=== PATIENT | male | born 1950 | race Caucasian/White ===

== ENCOUNTER 2016-07-23 04:48 | Emergency (ER) | payer OTHER ==
[~2016-07-23] VITALS: Ht 165.1 cm; Wt 63.5 kg
[2016-07-23] MEDS ORDERED: DIPHTH,PERTUSS(ACELL),TET TOX 0.5 ML DISP.SYRIN. VAX IM ONE (05:45)
[2016-07-23] MEDS ORDERED: LIDOCAINE 1%/EPI 1:100,000 20 ML VIAL. INJ ONE (05:45)
--- NOTE | 2016-07-23 05:45 | PHYS DOC ---
Past Medical History Past Medical History: Anxiety, Diabetes-Type II, High Cholesterol, Hypertension Additional Past Medical Histor: horseshoe kidney Past Surgical History: Other Additional Past Surgical Histo: septum Alcohol Use: Heavy Drug Use: None Adult General Chief Complaint Chief Complaint: ALCOHOL INTOXICATION HPI HPI Patient is a 65 year old gentleman with history significant for hypertension and diabetes who arrives to the ED today via [facility] from [address] [place] [address]. Patient reports that this is a [place] home. Patient reports he lives alone. Patient was found wandering around on foot with a laceration to his left eyebrow. Patient reports that he had fallen earlier. Patient reports no loss of consciousness. Patient reports that he was drinking a lot tonight and thinks that that's why he fell. Patient denies any chest pain shortness of breath nausea vomiting or diarrhea. Patient currently complaining of pain to his left eyebrow. Patient denies any neck pain back pain or other extremity pain. Patient reports he is able and blade after the fall without any difficulty. Patient denies any other symptomatology. Patient denies any fevers shakes chills nausea vomiting diarrhea chest pain shortness of breath cough cold rhinorrhea. Patient has a dysuria frequency or urgency. Review of Systems Review of Systems Constitutional: Denies fever or chills [] Eyes: Denies change in visual acuity, redness, or eye pain [] HENT: 2 cm laceration to his left eyebrow. Respiratory: Denies cough or shortness of breath [] Cardiovascular: No additional information not addressed in HPI [] GI: Denies abdominal pain, nausea, vomiting, bloody stools or diarrhea [] : Denies dysuria or hematuria [] Musculoskeletal: Denies back pain or joint pain [] Integument: Denies rash or skin lesions [] Neurologic: Denies headache, focal weakness or sensory changes [] Endocrine: Denies polyuria or polydipsia [] Current Medications Current Medications Current Medications Medications (Trade) Dose Ordered Sig/Liseth Start Time Stop Time Status Last Admin Dose Admin Diphtheria/ Tetanus/Acell Pertussis (Boostrix) 0.5 ml ONCE ONCE 07/23/16 05:45 07/23/16 05:46 DC 07/23/16 06:43 0.5 ML Lidocaine/ Epinephrine (Xylocaine 1%-Epi 1:100,000) 20 ml 1X ONCE 07/23/16 05:45 5/8/17 05:46 DC 07/23/16 05:45 20 ML Allergies Allergies Allergies Coded Allergies Type Severity Reaction Last Updated Verified codeine Allergy Unknown 07/23/16 Yes Physical Exam Physical Exam Constitutional: Well developed, well nourished, no acute distress, non-toxic appearance. [] HENT: Normocephalic, atraumatic, bilateral external ears normal, oropharynx moist, no oral exudates, nose normal. [] Eyes: PERRLA, EOMI, conjunctiva normal, no discharge. 2 cm laceration to his left eyebrow. [] Neck: Normal range of motion, no tenderness, supple, no stridor. [] Cardiovascular:Heart rate regular rhythm, Lungs & Thorax: Bilateral breath sounds clear to auscultation [] Abdomen: Bowel sounds normal, soft, no tenderness, no masses, no pulsatile masses. [] Skin: Warm, dry, no erythema, no rash. [] Back: No tenderness, no CVA tenderness. [] Extremities: No tenderness, no cyanosis, no clubbing, ROM intact, no edema. [] Neurologic: Alert and oriented X 3, normal motor function, normal sensory function, no focal deficits noted. [] Psychologic: Affect normal, judgement normal, mood normal. [] Current Patient Data Vital Signs Vital Signs Date Time Temp Pulse Resp B/P (MAP) Pulse Ox O2 Delivery O2 Flow Rate FiO2 07/23/16 07:35 70 16 145/77 (99) 98 Room Air 07/23/16 04:55 97.6 97.6 EKG EKG [] Radiology/Procedures Radiology/Procedures [] Procedure note: Patient with laceration to his left eyebrow. Wound was irrigated with 500 mL of normal saline. Wound was cleansed with Betadine and alcohol prep. After anesthetization with 2 mL of lidocaine. Wound was sutured utilizing 3 times 4. 0 Ethilon sutures. Simple interrupted. Patient tolerated the procedure well. Course & Med Decision Making Course & Med Decision Making Pertinent Labs and Imaging studies reviewed. (See chart for details) Assumed care of this patient from Dr. Cast. Patient remained in stable condition. He ambulated to the restroom with steady gait. A&Ox3, not suicidal. Will discharge in stable & improved condition, follow up for suture removal, consider treatment for alcohol addiction/abuse. Lillian Rivera MD [] Dragon Disclaimer Dragon Disclaimer This electronic medical record was generated, in whole or in part, using a voice recognition dictation system. Departure Departure Impression: Primary Impression: Alcohol intoxication Additional Impressions: Eyebrow laceration Fall Disposition: 01 HOME, SELF-CARE Condition: IMPROVED Referrals: UNKNOWN PCP NAME (PCP) Patient Instructions: Alcohol Intoxication, Facial Laceration, Head Injury, Adult Additional Instructions: He will need a wound check in 2 days. Sutures may be removed in 5-7 days. Do not drink so much alcohol. Go home and sleep do not drive. Drink lots of nonalcoholic liquids. Problem Qualifiers Primary Impression: Alcohol intoxication Complication of substance-induced condition: uncomplicated Qualified Codes: F10.120 - Alcohol abuse with intoxication, uncomplicated Additional Impressions: Eyebrow laceration Encounter type: initial encounter Laterality: left Qualified Codes: S01.112A - Laceration without foreign body of left eyelid and periocular area, initial encounter Fall Encounter type: initial encounter Qualified Codes: W19.XXXA - Unspecified fall, initial encounter GIOVANNY CAST MD July 23, 2016 05:45 LILLIAN RIVERA MD July 23, 2016 07:33
--- NOTE | 2016-07-23 06:16 | RAD ---
PROCEDURE CT head and cervical spine without contrast. HISTORY Trauma, fall, head injury. COMPARISON CT head without contrast October 04, 2005. TECHNIQUE Helical CT imaging of the brain and of the cervical spine is performed without IV contrast. PQRS: One or more the following individualized dose reduction techniques were utilized for the study: 1. Automated exposure control. 2. Adjustment of the mA and/or kV according to patient size. 3. Use of iterative reconstruction technique. FINDINGS No acute calvarial fracture. Visualized globes and orbits are intact. Paranasal sinuses and mastoid air cells are clear. Mild lateral left frontal scalp soft tissue swelling. No midline shift or mass effect. No extra-axial fluid collection or intraparenchymal hemorrhage. Nixon-white matter differentiation is preserved. Basilar cisterns are patent. The ventricles and sulci are prominent, consistent with age-related cerebral atrophy. Ventricles are out of proportion to the sulci, this may reflect central atrophy. There is periventricular white matter hypoattenuation, nonspecific but commonly due to chronic small vessel ischemic disease in a patient of this age. No acute fracture or subluxation of the cervical spine. Minimal grade 1 anterolisthesis of C2 on C3. Alignment is otherwise maintained. There is degenerative endplate spurring in the cervical spine. The facet joints are intact, mildly hyper trophic. Calcifications along the nuchal ligament. Central canal stenosis of C4/C5 secondary to spondylitic disc. There is bilateral neural foraminal narrowing of C5/C6 that appears severe due to uncinate process hypertrophy. Visualized lung apices are clear. The thyroid gland is enlarged and heterogeneous. IMPRESSION No acute intracranial abnormality. No acute fracture or subluxation of the cervical spine. Electronically signed by: Dilip Ortiz MD (July 23, 2016 06:14:59)
[2016-07-23 07:35] VITALS: BP 145/77
== END 2016-07-23 08:15 | disposition home or self-care (01) ==
LOC: ER 04:48
DX: S01.112A Laceration without foreign body of left eyelid and periocular area, initial encounter (principal); F10.120 Alcohol abuse with intoxication, uncomplicated; F41.9 Anxiety disorder, unspecified; E11.9 Type 2 diabetes mellitus without complications; E78.00 Pure hypercholesterolemia, unspecified; I10 Essential (primary) hypertension; Z88.5 Allergy status to narcotic agent; W18.39XA Other fall on same level, initial encounter; Y93.89 Activity, other specified; Y92.89 Other specified places as the place of occurrence of the external cause; Y99.8 Other external cause status
CPT/HCPCS: 12011; 70450; 72125; 90471; 90715; 99284; J3490

== ENCOUNTER 2016-08-03 09:57 | Emergency (ER) | payer OTHER ==
[~2016-08-03] VITALS: Ht 170.2 cm; Wt 63.5 kg
[2016-08-03 10:10] VITALS: BP 152/67
--- NOTE | 2016-08-03 10:38 | PHYS DOC ---
Past Medical History Past Medical History: Other Additional Past Medical Histor: HARD OF HEARING Past Surgical History: No Surgical History Additional Past Surgical Histo: septum Additional Information: 1 PACK/DAY Alcohol Use: Occasionally Drug Use: None Adult General Chief Complaint Chief Complaint: SUTURE/STAPLE REMOVAL [facility] Patient is a 65 year old male presents to the emergency department stating that he was seen here on July 23 and had 3 interrupted sutures placed above his left eyebrow. Patient states that he has not been cleaning the area he denies any drainage or discharge coming from the site. He denies any fever, chills or any nausea vomiting. Review of Systems Review of Systems Constitutional: Denies fever or chills [] Eyes: Denies change in visual acuity, redness, or eye pain [] HENT: Denies nasal congestion or sore throat [] Respiratory: Denies cough or shortness of breath [] Cardiovascular: No additional information not addressed in HPI [] GI: Denies abdominal pain, nausea, vomiting, bloody stools or diarrhea [] : Denies dysuria or hematuria [] Musculoskeletal: Denies back pain or joint pain [] Integument: Denies rash or skin lesions. Patient states he is here for suture removal Neurologic: Denies headache, focal weakness or sensory changes [] Endocrine: Denies polyuria or polydipsia [] Allergies Allergies Allergies Coded Allergies Type Severity Reaction Last Updated Verified codeine Allergy Unknown 07/23/16 Yes Physical Exam Physical Exam Constitutional: Well developed, well nourished, no acute distress, non-toxic appearance. [] HENT: Normocephalic, atraumatic, bilateral external ears normal, oropharynx moist, no oral exudates, nose normal. [] Eyes: PERRLA, EOMI, conjunctiva normal, no discharge. [] Neck: Normal range of motion, no tenderness, supple, no stridor. [] Cardiovascular:Heart rate regular rhythm, no murmur [] Lungs & Thorax: Bilateral breath sounds clear to auscultation [] Skin: Warm, dry, no erythema, no rash. Patient with 3 interrupted sutures noted in the left forehead above the eyebrow. The area appears to be very crusted over no drainage or discharge noted from the site. Back: No tenderness Extremities: No tenderness, no cyanosis, no clubbing, ROM intact, no edema. [] Neurologic: Alert and oriented X 3, normal motor function, normal sensory function, no focal deficits noted. [] Psychologic: Affect normal, judgement normal, mood normal. [] Current Patient Data Vital Signs Vital Signs Date Time Temp Pulse Resp B/P (MAP) Pulse Ox O2 Delivery O2 Flow Rate FiO2 08/03/16 10:10 97.6 51 16 99 Room Air 97.6 EKG EKG [] Radiology/Procedures Radiology/Procedures [] Course & Med Decision Making Course & Med Decision Making Pertinent Labs and Imaging studies reviewed. (See chart for details) 3 interrupted sutures removed with no difficulty. Patient was provided with discharge instructions to keep the area clean and dry. Apply antibiotic ointment over the area 2-3 times a day. Patient agrees with discharge instructions. Signs symptoms to return back to emergency department been provided. [] Dragon Disclaimer Dragon Disclaimer This electronic medical record was generated, in whole or in part, using a voice recognition dictation system. Departure Departure Impression: Primary Impression: Visit for suture removal Disposition: HOME, SELF-CARE Condition: STABLE Referrals: UNKNOWN PCP NAME (PCP) Patient Instructions: Suture Removal-Brief Additional Instructions: Activity as tolerated Tylenol or Ibuprofen as needed for fever, chills or generalized body aches Clean the wound with soap and water and apply antibiotic ointment over the site twice a day Continue to watch for signs and symptoms of infection: redness, warmth, tenderness or any yellow/greenish drainage that may occur. If this happens followup with your primary care provider immediately Otherwise followup as needed with primary care provider Return to emergency department as needed for signs and symptoms that become worse. AKIN MORTENSEN [employer]INE [employer] August 03, 2016 10:38
== END 2016-08-03 10:46 | disposition home or self-care (01) ==
LOC: ER 10:26
DX: S01.112D Laceration without foreign body of left eyelid and periocular area, subsequent encounter (principal); F17.200 Nicotine dependence, unspecified, uncomplicated; Z88.5 Allergy status to narcotic agent; W45.8XXD Other foreign body or object entering through skin, subsequent encounter; Y92.89 Other specified places as the place of occurrence of the external cause; Y99.8 Other external cause status
CPT/HCPCS: 99281

== ENCOUNTER 2017-07-17 01:25 | Emergency (ER) | payer MEDICARE, OTHER ==
[2017-07-17] MEDS: DIPHTH,PERTUSS(ACELL),TET TOX 0.5 ML DISP.SYRIN. VAX IM (02:00)
== END 2017-07-17 02:22 | disposition home or self-care (01) ==
LOC: ER 01:25
DX: S00.81XA Abrasion of other part of head, initial encounter (principal); F10.229 Alcohol dependence with intoxication, unspecified; E11.9 Type 2 diabetes mellitus without complications; Z88.5 Allergy status to narcotic agent; W01.0XXA Fall on same level from slipping, tripping and stumbling without subsequent striking against object, initial encounter; Y93.89 Activity, other specified; Y99.8 Other external cause status; Y92.838 Other recreation area as the place of occurrence of the external cause
CPT/HCPCS: 90471; 90715; 99284-25

== ENCOUNTER 2018-06-07 23:55 | Emergency (ER) | payer MEDICARE ==
[~2018-06-07] VITALS: Ht 182.9 cm; Wt 63.5 kg
[2018-06-07 23:55] VITALS: BP 116/69
--- NOTE | 2018-06-08 04:44 | PHYS DOC ---
Past Medical History Past Medical History: Alcoholism, Diabetes-Type II, Other Additional Past Medical Histor: HARD OF HEARING Past Surgical History: No Surgical History Additional Past Surgical Histo: septum Alcohol Use: Heavy Drug Use: None Social History Narrative: UNKNOWN Adult General Chief Complaint Chief Complaint: ALCOHOL INTOXICATION HPI HPI Patient is a 67 year old m biba from [facility] with etoh drank too much reji wanted him to go home, he called 911 . no trauma. pt said he fell a couple weeks back, has scab on face from that. Review of Systems Review of Systems lijm by alcohol abuse and intoxication Allergies Allergies Allergies Coded Allergies Type Severity Reaction Last Updated Verified codeine Allergy Unknown 07/23/16 Yes Physical Exam Physical Exam Constitutional: Well developed, thin, mild chronic distress, smells like alcohol. HENT: Normocephalic, old appearing scabs on the face, bilateral external ears normal, oropharynx moist, no oral exudates, nose normal. [] Eyes: PERRLA,, conjunctiva normal, no discharge. [] Neck: Normal range of motion, no tenderness, supple, no stridor. [] Cardiovascular:Heart rate regular rhythm, no murmur [] Lungs & Thorax: Bilateral breath sounds clear to auscultation [] no chest wall ttp Abdomen: Bowel sounds normal, soft, no tenderness, no masses, no pulsatile masses. Extremities: No tenderness, no cyanosis, no clubbing, ROM intact, no edema. [] Neurologic: Alert and oriented X 3, normal motor function, normal sensory function, no focal deficits noted. [] slurred speech c/w known etoh otherwise intact. Psychologic:difficult to assess, pt is intoxicated Current Patient Data Vital Signs Vital Signs Date Time Temp Pulse Resp B/P (MAP) Pulse Ox O2 Delivery O2 Flow Rate FiO2 06/08/18 03:00 68 96 Nasal Cannula 2.0 06/08/18 01:00 16 06/07/18 23:55 97.6 116/69 (85) 97.6 Lab Values Laboratory Tests Test 06/08/18 01:07 Glucose (Fingerstick) 116 mg/dL (70-99) H EKG EKG [] Radiology/Procedures Radiology/Procedures [] Course & Med Decision Making Course & Med Decision Making Pertinent Labs and Imaging studies reviewed. (See chart for details) []430 am pt is more clinically sober, able to take po and ambulate. he plans to call a taxi to take him home. he has been observed in the er for several hours. encouraged to limit alcohol intake. Milvia Disclaimer Milvia Disclaimer This electronic medical record was generated, in whole or in part, using a voice recognition dictation system. Departure Departure Impression: Primary Impression: Alcohol abuse Disposition: 01 HOME, SELF-CARE Condition: STABLE Patient Instructions: Alcohol Problems JENNIFER JONES MD Jun 08, 2018 04:44
== END 2018-06-08 04:40 | disposition home or self-care (01) ==
LOC: ER 23:55
DX: F10.129 Alcohol abuse with intoxication, unspecified (principal); Y90.9 Presence of alcohol in blood, level not specified; E11.9 Type 2 diabetes mellitus without complications; Z88.5 Allergy status to narcotic agent
CPT/HCPCS: 82962; 99284

== ENCOUNTER 2019-03-12 11:15 | Emergency (ER) | payer MEDICARE, OTHER ==
[~2019-03-12] VITALS: Ht 170.2 cm; Wt 63.5 kg
[2019-03-12 12:07] LABS: BILIRUBIN,URINE NEGATIVE (NEG); COLOR,URINE YELLOW; NITRITE,URINE NEGATIVE (NEG); PROTEIN,URINE NEGATIVE (NEG-TRACE); UROBILINOGEN,URINE 0.2 mg/dL (0.2 mg/dL)
[2019-03-12 12:09] LABS: BASO % 0 % (0-3); EOS # 0.1 x10^3/uL (0.0-0.7); EOS % 2 % (0-3); HEMATOCRIT 41.5 % (39.0-53.0); HEMOGLOBIN 14.1 g/dL (13.0-17.5); LYMPH # 1.3 x10^3/uL (1.0-4.8); LYMPH % 21 % (24-48); MEAN CORPUSCULAR HEMOGLOBIN 31 pg (25-35); MEAN CORPUSCULAR HGB CONC 34 g/dL (31-37); MEAN CORPUSCULAR VOLUME 91 fL (79-100); MONO # 0.3 x10^3/uL (0.0-1.1); MONO % 6 % (0-9); NEUT # 4.5 x10^3/uL (1.8-7.7); NEUT % 71 % (31-73); PLATELET COUNT 275 x10^3/uL (140-400); RED BLOOD COUNT 4.54 x10^6/uL (4.30-5.70); RED CELL DISTRIBUTION WIDTH 15.6 % (11.5-14.5); WHITE BLOOD COUNT 6.3 x10^3/uL (4.0-11.0)
[2019-03-12 12:14] LABS: CALCIUM 10.2 mg/dL (8.5-10.1); CREATININE 0.9 mg/dL (0.7-1.3); GFR 83.7; POTASSIUM 4.2 mmol/L (3.5-5.1)
[2019-03-12 12:14] LABS: CLARITY,URINE HAZY
[2019-03-12 12:16] LABS: BACTERIA,URINE FEW /HPF (0-FEW); BARBITURATES NEG (NEG); BENZODIAZEPINES NEG (NEG); CANNABINOIDS NEG (NEG); COCAINE NEG (NEG); METHADONE NEG (NEG); OPIATES NEG (NEG); PHENCYCLIDINE NEG (NEG); RBC,URINE OCC /HPF (0-2); SQUAMOUS EPITHELIAL CELL,UR FEW /LPF
--- NOTE | 2019-03-12 12:18 | RAD ---
EXAM: CHEST ONE VIEW. HISTORY: Weakness. COMPARISON: None available. FINDINGS: A frontal view of the chest is obtained. There are no confluent infiltrates. There is no pneumothorax or pleural effusion. The heart is not enlarged. A sclerotic focus in the right proximal humeral metaphysis measures 2.5 x 1.6 cm. IMPRESSION: 1. No confluent infiltrates. 2. A 2.5 cm sclerotic lesion within the right proximal humerus is most likely a benign chondroid lesion such as an enchondroma. Comparison with older studies could confirm long-term stability. Electronically signed by: Oli Vital MD (03/12/2019 12:15 PM) [facility]
[2019-03-12 12:19] LABS: AMPHETAMINE/METHAMPHETAMINE NEG (NEG)
[2019-03-12 12:26] LABS: ALBUMIN/GLOBULIN RATIO 1.2 (1.0-1.7); TOTAL BILIRUBIN 0.3 mg/dL (0.2-1.0); TOTAL PROTEIN 7.4 g/dL (6.4-8.2)
--- NOTE | 2019-03-12 12:27 | RAD ---
CT HEAD INDICATION: COMPARISON: None Available. Exposure: One or more of the following individualized dose reduction techniques were utilized for this examination: 1. Automated exposure control 2. Adjustment of the mA and/or kV according to patient size 3. Use of iterative reconstruction technique TECHNIQUE: 5 mm contiguous axial images were obtained from the skull base to the vertex in both bone and soft tissue algorithm. FINDINGS: No abnormal attenuation within the brain parenchyma. No evidence of acute intracranial hemorrhage. No extra-axial fluid collections. No mass effect or midline shift. Ventricular size is appropriate. Basal cisterns are patent. No fractures identified.Nixon-white differentiation is preserved.Globes and orbits are within normal limits. Paranasal sinuses and mastoid air cells are clear. IMPRESSION: No acute intracranial findings. Electronically signed by: Dominick Yuen MD (03/12/2019 12:25 PM) [id number]
[2019-03-12] MEDS: IV NORMAL SALINE 1000ML BAG 1,000 ML IV ONE (12:31)
[2019-03-12 12:32] LABS: CREATINE KINASE 24 U/L (39-308)
--- NOTE | 2019-03-12 12:41 | EKG ---
[facility] [address] [place] [address] Test Date: 2019-03-12 Test Time: 11:38:46 Pat Name: ROSALEE OLIVEROS Department: Room: Gender: M Clerk Of Court: : 1950 Requested By: TAISHA JON Order Number: [id number] Reading MD: Measurements Intervals [place] Rate: 51 P: CT: QRS: -11 QRSD: 76 T: 52 QT: 460 QTc: 426 Interpretive Statements IRREGULAR RHYTHM, NO P-WAVE FOUND LEFTWARD AXIS ST & T ABNORMALITY, CONSIDER HIGH LATERAL ISCHEMIA OR LEFT VENTRICULAR STRAIN INFERIOR ISCHEMIA OR LEFT VENTRICULAR STRAIN ABNORMAL ECG RI6.01 No previous ECG available for comparison
[2019-03-12 13:00] VITALS: BP 179/125
--- NOTE | 2019-03-12 13:41 | PHYS DOC ---
Past Medical History Past Medical History: Alcoholism, Diabetes-Type II, Hypertension, Other Additional Past Medical Histor: HARD OF HEARING Past Surgical History: No Surgical History Additional Past Surgical Histo: septum Alcohol Use: Heavy Drug Use: None Adult General Chief Complaint Chief Complaint: WEAKNESS/GENERALIZED HPI HPI Patient is a 68 year old patient with history of alcoholism, hypertension, diabetes type 2, who presents to the ED today complaining of generalized weakness for 2 weeks. Patient denies any chest pain or shortness of breath. He reports he stopped drinking 2 months ago. Review of Systems Review of Systems Constitutional: Reports generalized weakness. Denies fever or chills [] Eyes: Denies change in visual acuity, redness, or eye pain [] HENT: Denies nasal congestion or sore throat [] Respiratory: Denies cough or shortness of breath [] Cardiovascular: No additional information not addressed in HPI [] GI: Denies abdominal pain, nausea, vomiting, bloody stools or diarrhea [] : Denies dysuria or hematuria [] Musculoskeletal: Denies back pain or joint pain [] Integument: Denies rash or skin lesions [] Neurologic: Denies headache, focal weakness or sensory changes [] All other systems were reviewed and found to be within normal limits, except as documented in this note. Current Medications Current Medications Current Medications Medications (Trade) Dose Ordered Sig/Liseth Start Time Stop Time Status Last Admin Dose Admin Sodium Chloride 1,000 ml @ 1,000 mls/hr 1X ONCE 03/12/19 12:00 03/12/19 12:59 DC 03/12/19 12:31 1,000 MLS/HR Allergies Allergies Allergies Coded Allergies Type Severity Reaction Last Updated Verified codeine Allergy Unknown 07/23/16 Yes Physical Exam Physical Exam Constitutional: Well developed, well nourished, no acute distress, non-toxic appearance. [] HENT: Normocephalic, atraumatic, bilateral external ears normal, oropharynx moist, no oral exudates, nose normal. Very hard of hearing especially on the left. Eyes: PERRLA, EOMI, conjunctiva normal, no discharge. [] Neck: Normal range of motion, no tenderness, supple, no stridor. [] Cardiovascular:Heart rate regular rhythm, no murmur [] Lungs & Thorax: Bilateral breath sounds clear to auscultation [] Abdomen: Bowel sounds normal, soft, no tenderness, no masses, no pulsatile mas ses. [] Skin: Warm, dry, no erythema, no rash. [] Back: No tenderness, no CVA tenderness. [] Extremities: No tenderness, no cyanosis, no clubbing, ROM intact, no edema. [] Neurologic: Alert and oriented X 3, normal motor function, normal sensory function, no focal deficits noted. Cranial nerves II through XII intact Psychologic: Affect normal, judgement normal, mood normal. [] Current Patient Data Vital Signs Vital Signs Date Time Temp Pulse Resp B/P (MAP) Pulse Ox O2 Delivery O2 Flow Rate FiO2 03/12/19 13:00 74 18 99 03/12/19 11:30 98.2 160/75 (103) Room Air 98.2 Lab Values Laboratory Tests Test 03/12/19 11:28 03/12/19 11:42 Urine Collection Type Void Urine Color Yellow Urine Clarity Hazy Urine pH 8.0 Urine Specific [place] 1.010 Urine Protein Negative mg/dL (NEG-TRACE) Urine Glucose (UA) Negative mg/dL (NEG) Urine Ketones (Stick) Negative mg/dL (NEG) Urine Blood Negative (NEG) Urine Nitrite Negative (NEG) Urine Bilirubin Negative (NEG) Urine Urobilinogen Dipstick 0.2 mg/dL (0.2 mg/dL) Urine Leukocyte Esterase Negative (NEG) Urine RBC Occ /HPF (0-2) Urine WBC 1-4 /HPF (0-4) Urine Squamous Epithelial Cells Few /LPF Urine Bacteria Few /HPF (0-FEW) Urine Mucus Slight /LPF Urine Opiates Screen Neg (NEG) Urine Methadone Screen Neg (NEG) Urine Barbiturates Neg (NEG) Urine Phencyclidine Screen Neg (NEG) Urine Amphetamine/Methamphetamine Neg (NEG) Urine Benzodiazepines Screen Neg (NEG) Urine Cocaine Screen Neg (NEG) Urine Cannabinoids Screen Neg (NEG) Urine Ethyl Alcohol Neg (NEG) White Blood Count 6.3 x10^3/uL (4.0-11.0) Red Blood Count 4.54 x10^6/uL (4.30-5.70) Hemoglobin 14.1 g/dL (13.0-17.5) Hematocrit 41.5 % (39.0-53.0) Mean Corpuscular Volume 91 fL (79-100) Mean Corpuscular Hemoglobin 31 pg (25-35) Mean Corpuscular Hemoglobin Concent 34 g/dL (31-37) Red Cell Distribution Width 15.6 % (11.5-14.5) H Platelet Count 275 x10^3/uL (140-400) Neutrophils (%) (Auto) 71 % (31-73) Lymphocytes (%) (Auto) 21 % (24-48) L Monocytes (%) (Auto) 6 % (0-9) Eosinophils (%) (Auto) 2 % (0-3) Basophils (%) (Auto) 0 % (0-3) Neutrophils # (Auto) 4.5 x10^3/uL (1.8-7.7) Lymphocytes # (Auto) 1.3 x10^3/uL (1.0-4.8) Monocytes # (Auto) 0.3 x10^3/uL (0.0-1.1) Eosinophils # (Auto) 0.1 x10^3/uL (0.0-0.7) Basophils # (Auto) 0.0 x10^3/uL (0.0-0.2) Sodium Level 142 mmol/L (136-145) Potassium Level 4.2 mmol/L (3.5-5.1) Chloride Level 106 mmol/L (98-107) Carbon Dioxide Level 32 mmol/L (21-32) Anion Gap 4 (6-14) L Blood Urea Nitrogen 16 mg/dL (8-26) Creatinine 0.9 mg/dL (0.7-1.3) Estimated GFR (Cockcroft-Gault) 83.7 BUN/Creatinine Ratio 18 (6-20) Glucose Level 115 mg/dL (70-99) H Calcium Level 10.2 mg/dL (8.5-10.1) H Total Bilirubin 0.3 mg/dL (0.2-1.0) Aspartate Amino Transferase (AST) 13 U/L (15-37) L Alanine Aminotransferase (ALT) 24 U/L (16-63) Alkaline Phosphatase 103 U/L (46-116) Creatine Kinase 24 U/L (39-308) L Creatine Kinase MB (Mass) < 0.5 ng/mL (0.0-3.6) Creatine Kinase MB Relative Index % (0-4) Troponin I Quantitative < 0.017 ng/mL (0.000-0.055) HO-Wbk-J-Type Natriuretic Peptide 468 pg/mL (0-124) H Total Protein 7.4 g/dL (6.4-8.2) Albumin 4.0 g/dL (3.4-5.0) Albumin/Globulin Ratio 1.2 (1.0-1.7) Lipase 77 U/L (73-393) Thyroid Stimulating Hormone (TSH) 1.931 uIU/mL (0.358-3.74) Laboratory Tests 03/12/19 11:42 Laboratory Tests 03/12/19 11:42 EKG EKG [address] Abarca sinus rhythm HR 51 no STEMI[] Radiology/Procedures Radiology/Procedures []PROCEDURE: PORTABLE CHEST 1V EXAM: CHEST ONE VIEW. HISTORY: Weakness. COMPARISON: None available. FINDINGS: A frontal view of the chest is obtained. There are no confluent infiltrates. There is no pneumothorax or pleural effusion. The heart is not enlarged. A sclerotic focus in the right proximal humeral metaphysis measures 2.5 x 1.6 cm. IMPRESSION: 1. No confluent infiltrates. 2. A 2.5 cm sclerotic lesion within the right proximal humerus is most likely a benign chondroid lesion such as an enchondroma. Comparison with older studies could confirm long-term stability. Electronically signed by: Oli Vital MD (03/12/2019 12:15 PM) [facility] DICTATED and SIGNED BY: AIYANA VITAL MD DATE: 03/12/19 1215 PROCEDURE: CT HEAD WO CONTRAST ADDENDUM Addendum: History: Weakness Electronically signed by: Dominick Yuen MD (03/12/2019 12:35 PM) [id number] DICTATED AND SIGNED BY: DOMINICK YUEN MD DATE: 03/12/19 1235 CC: TAISHA JON SPIN TABLE OPERATOR; NON,STAFF; UNKNOWN PCP NAME ~ CT HEAD INDICATION: COMPARISON: None Available. Exposure: One or more of the following individualized dose reduction techniques were utilized for this examination: 1. Automated exposure control 2. Adjustment of the mA and/or kV according to patient size 3. Use of iterative reconstruction technique TECHNIQUE: 5 mm contiguous axial images were obtained from the skull base to the vertex in both bone and soft tissue algorithm. FINDINGS: No abnormal attenuation within the brain parenchyma. No evidence of acute intracranial hemorrhage. No extra-axial fluid collections. No mass effect or midline shift. Ventricular size is appropriate. Basal cisterns are patent. No fractures identified.Nixon-white differentiation is preserved.Globes and orbits are within normal limits. Paranasal sinuses and mastoid air cells are clear. IMPRESSION: No acute intracranial findings. Electronically signed by: Dominick Yuen MD (03/12/2019 12:25 PM) [id number] DICTATED and SIGNED BY: DOMINICK YUEN MD DATE: 03/12/19 1225 Course & Med Decision Making Course & Med Decision Making Pertinent Labs and Imaging studies reviewed. (See chart for details) This is a 68-year-old male patient presenting to the ED today complaining of generalized weakness, symptoms began 2 weeks ago. He arrives in the ED requesting something to eat. 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 Patient was discharged to home. Follow-up with PCP. Milvia Disclaimer Dragon Disclaimer This electronic medical record was generated, in whole or in part, using a voice recognition dictation system. Departure Departure Impression: Primary Impression: Generalized weakness Disposition: 01 HOME, SELF-CARE Condition: STABLE Referrals: UNKNOWN PCP NAME (PCP) Follow-up with your doctor in 1-2 weeks Patient Instructions: Weakness, [id number] Additional Instructions: You were evaluated in the emergency room for generalized weakness. Please follow-up with your own primary care doctor in the next 1-2 weeks. TAISHA JON APRN Mar 12, 2019 13:41
== END 2019-03-12 13:57 | disposition home or self-care (01) ==
LOC: ER 11:15
DX: R53.1 Weakness (principal); E11.9 Type 2 diabetes mellitus without complications; I10 Essential (primary) hypertension; F10.20 Alcohol dependence, uncomplicated; Y90.9 Presence of alcohol in blood, level not specified; Z88.5 Allergy status to narcotic agent
CPT/HCPCS: 36415; 70450; 71045; 80053; 80307; 81001; 82553; 83690; 83880; 84443; 84484; 85025; 93005; 96360; 99285; J7030

== ENCOUNTER 2019-04-09 21:38 | Emergency (ER) | payer MEDICARE ==
[~2019-04-09] VITALS: Ht 170.2 cm; Wt 63.0 kg
[2019-04-09 22:34] VITALS: BP 174/79
--- NOTE | 2019-04-09 23:06 | PHYS DOC ---
Past Medical History Past Medical History: Alcoholism, Diabetes-Type II, Hypertension, Other Additional Past Medical Histor: HARD OF HEARING (JACKELYN WATSON APRN) Past Surgical History: No Surgical History Additional Past Surgical Histo: septum (JACKELYN WATSON APRN) Alcohol Use: Heavy Drug Use: None (JACKELYN WATSON APRN) Attending Signature I have participated in the care of this patient and I have reviewed and agree with all pertinent clinical information above including history, exam, and recommendations. (MARIELLA GENAO MD) Adult General Chief Complaint Chief Complaint: ALCOHOL INTOXICATION [facility] HPI Patient is a 68 year old male who presents with alcohol intoxication. The patient was brought via EMS after he was found sitting on the side of the road and was brought to ER. The patient denies additional complaints and states he wants to go home. Complete ROS were reviewed and found to be within normal limits, except as documented in the HPI (JACKELYN WATSON APRN) Allergies Allergies Allergies Coded Allergies Type Severity Reaction Last Updated Verified codeine Allergy Unknown 07/23/16 Yes (MARIELLA GENAO MD) Physical Exam Physical Exam Constitutional: Well developed, well nourished, no acute distress, non-toxic appearance. [] HENT: Normocephalic, atraumatic, bilateral external ears normal, oropharynx mois t, no oral exudates, nose normal. [] Eyes: PERRLA, EOMI, conjunctiva normal, no discharge. [] Neck: Normal range of motion, no tenderness, supple, no stridor. [] Cardiovascular:Heart rate regular rhythm, no murmur [] Lungs & Thorax: Bilateral breath sounds clear to auscultation [] Skin: Warm, dry, no erythema, no rash. [] Neurologic: Alert and oriented X 3, normal motor function, normal sensory function, no focal deficits noted. [] Psychologic: Affect normal, judgement normal, mood normal. [] (JACKELYN WATSON APRN) Current Patient Data Vital Signs Vital Signs Date Time Temp Pulse Resp B/P (MAP) Pulse Ox O2 Delivery O2 Flow Rate FiO2 04/09/19 22:34 76 20 174/79 (110) Room Air 98.0 04/09/19 21:40 97.7 96 97.7 (MARIELLA GENAO MD) EKG EKG [] (JACKELYN WATSON APRN) Radiology/Procedures Radiology/Procedures [] (JACKELYN WATSON APRN) Course & Med Decision Making Course & Med Decision Making Pertinent Labs and Imaging studies reviewed. (See chart for details) The patient is intoxication but clinically sober. The patient is able to walk a nd drink PO fluids. Will d/c home. Nursing will get a cab. (JACKELYN WATSON APRN) Dragon Disclaimer Dragon Disclaimer This electronic medical record was generated, in whole or in part, using a voice recognition dictation system. (JACKELYN WATSON APRN) Departure Departure Impression: Primary Impression: Alcohol intoxication Disposition: HOME, SELF-CARE Condition: STABLE Referrals: UNKNOWN PCP NAME (PCP) Patient Instructions: Alcohol Intoxication Additional Instructions: Thank you for visiting [facility]. We appreciate you trusting us with your care. If any additional problems come up don't hesitate to return to visit us. Please follow up with your primary care provider so they can plan additional care if needed and know about the problem that you had. If symptoms worsen come back to the Emergency Department. Any concerning symptoms that start such as chest pain, shortness of air, weakness or numbness on one side of the body, running high fevers or any other concerning symptoms return to the ER. Problem Qualifiers Primary Impression: Alcohol intoxication Complication of substance-induced condition: with unspecified complication Qualified Codes: F10.929 - Alcohol use, unspecified with intoxication, unspecified JACKELYN WATSON APRN Apr 09, 2019 23:06 MARIELLA GENAO MD Apr 10, 2019 00:58
== END 2019-04-09 23:12 | disposition home or self-care (01) ==
LOC: ER 21:38
DX: F10.229 Alcohol dependence with intoxication, unspecified (principal); E11.9 Type 2 diabetes mellitus without complications; I10 Essential (primary) hypertension; Z98.890 Other specified postprocedural states; Z88.5 Allergy status to narcotic agent
CPT/HCPCS: 99284

== ENCOUNTER 2019-05-12 01:51 | Emergency (ER) | payer MEDICARE ==
[~2019-05-12] VITALS: Ht 170.2 cm; Wt 55.8 kg
--- NOTE | 2019-05-12 02:09 | PHYS DOC ---
Past Medical History Past Medical History: Alcoholism, Diabetes-Type II, Hypertension, Other Additional Past Medical Histor: HARD OF HEARING Past Surgical History: No Surgical History Additional Past Surgical Histo: septum Smoking Status: Unknown if ever smoked Alcohol Use: Heavy Drug Use: None Adult General Chief Complaint Chief Complaint: ALTERED MENTAL STATUS HPI HPI 68-year-old male with underlying history of hypertension, diabetes, EtOH presents to the emergency department via EMS after they were called for "altered mental status." Patient is hard of hearing, he answers questions appropriately and examination. He states he got into a hot bath tonight and became weak and therefore called 911. Patient has no unilateral symptoms on examination, roommate states patient has been drinking all day, patient denies any alcohol use. He denies any headache, visual change, chest pain, shortness breath, nausea, vomiting on examination. Review of Systems Review of Systems Constitutional: Denies fever or chills [] Respiratory: Denies cough or shortness of breath [] Cardiovascular: No additional information not addressed in HPI [] GI: Denies abdominal pain, nausea, vomiting, bloody stools or diarrhea [] : Denies dysuria or hematuria [] Musculoskeletal: Denies back pain or joint pain [] Integument: Denies rash or skin lesions [] Neurologic: Denies headache, focal weakness or sensory changes [] All other systems were reviewed and found to be within normal limits, except as documented in this note. Current Medications Current Medications Current Medications Medications (Trade) Dose Ordered Sig/Liseth Start Time Stop Time Status Last Admin Dose Admin Ondansetron HCl (Zofran) 4 mg 1X ONCE 05/12/19 02:30 05/12/19 02:31 DC 05/12/19 02:19 4 MG Allergies Allergies Allergies Coded Allergies Type Severity Reaction Last Updated Verified codeine Allergy Unknown 07/23/16 Yes Physical Exam Physical Exam Constitutional: Well developed, well nourished, no acute distress, non-toxic appearance. [] HENT: Normocephalic, atraumatic, bilateral external ears normal, oropharynx moist, no oral exudates, nose normal. [] Eyes: PERRLA, EOMI, conjunctiva normal, no discharge. [] Cardiovascular:Heart rate regular rhythm, no murmur [] Lungs & Thorax: Bilateral breath sounds clear to auscultation [] Abdomen: Bowel sounds normal, soft, no tenderness, no masses, no pulsatile masses. [] Skin: Warm, dry, no erythema, no rash. [] Back: No tenderness, no CVA tenderness. [] Extremities: No tenderness, no edema. [] Neurologic: Alert and oriented X 3, no focal deficits noted. [] Psychologic: Affect normal, judgement normal, mood normal. [] Current Patient Data Vital Signs Vital Signs Date Time Temp Pulse Resp B/P (MAP) Pulse Ox O2 Delivery O2 Flow Rate FiO2 05/12/19 03:00 70 20 96 05/12/19 02:00 99.5 99.5 05/12/19 01:55 164/91 (115) Room Air Lab Values Laboratory Tests Test 05/12/19 02:45 White Blood Count 12.7 x10^3/uL (4.0-11.0) H Red Blood Count 4.50 x10^6/uL (4.30-5.70) Hemoglobin 14.0 g/dL (13.0-17.5) Hematocrit 41.9 % (39.0-53.0) Mean Corpuscular Volume 93 fL (79-100) Mean Corpuscular Hemoglobin 31 pg (25-35) Mean Corpuscular Hemoglobin Concent 34 g/dL (31-37) Red Cell Distribution Width 16.4 % (11.5-14.5) H Platelet Count 231 x10^3/uL (140-400) Neutrophils (%) (Auto) 88 % (31-73) H Lymphocytes (%) (Auto) 5 % (24-48) L Monocytes (%) (Auto) 5 % (0-9) Eosinophils (%) (Auto) 1 % (0-3) Basophils (%) (Auto) 0 % (0-3) Neutrophils # (Auto) 11.2 x10^3/uL (1.8-7.7) H Lymphocytes # (Auto) 0.7 x10^3/uL (1.0-4.8) L Monocytes # (Auto) 0.7 x10^3/uL (0.0-1.1) Eosinophils # (Auto) 0.1 x10^3/uL (0.0-0.7) Basophils # (Auto) 0.0 x10^3/uL (0.0-0.2) Platelet Estimate Pending Sodium Level 142 mmol/L (136-145) Potassium Level 3.5 mmol/L (3.5-5.1) Chloride Level 105 mmol/L (98-107) Carbon Dioxide Level 21 mmol/L (21-32) Anion Gap 16 (6-14) H Blood Urea Nitrogen 13 mg/dL (8-26) Creatinine 1.1 mg/dL (0.7-1.3) Estimated GFR (Cockcroft-Gault) 66.4 BUN/Creatinine Ratio 12 (6-20) Glucose Level 179 mg/dL (70-99) H Calcium Level 9.8 mg/dL (8.5-10.1) Magnesium Level 1.9 mg/dL (1.8-2.4) Total Bilirubin 0.3 mg/dL (0.2-1.0) Aspartate Amino Transferase (AST) 17 U/L (15-37) Alanine Aminotransferase (ALT) 15 U/L (16-63) L Alkaline Phosphatase 85 U/L (46-116) Total Protein 6.5 g/dL (6.4-8.2) Albumin 3.6 g/dL (3.4-5.0) Albumin/Globulin Ratio 1.2 (1.0-1.7) Laboratory Tests 05/12/19 02:45 Laboratory Tests 05/12/19 02:45 EKG EKG [] Radiology/Procedures Radiology/Procedures [facility] [address] [place] [address] IMAGING REPORT Signed PATIENT: ROSALEE OLIVEROS ACCOUNT: [id number] : 1950 LOCATION: ER AGE: 68 SEX: M EXAM STATUS: REG ER ORD. PHYSICIAN: MARIELLA GENAO MD REASON: AMS PROCEDURE: CT HEAD WO CONTRAST CT head without contrast dated 05/12/2019. Comparison made 03/12/2019. CLINICAL INDICATION: Altered mental status. TECHNIQUE: Contiguous axial imaging the head performed from skull base to vertex. No contrast administered. One or more of the following individualized dose reduction techniques were utilized for this examination: 1. Automated exposure control 2. Adjustment of the mA and/or kV according to patient size 3. Use of iterative reconstruction technique. FINDINGS: Ventricles and sulci are mildly prominent for age. No midline shift or mass effect. Mild patchy low density in the deep/subcortical periventricular white matter. No hemorrhage or extra-axial collection. Posterior fossa and brainstem unremarkable. Visualized paranasal sinuses are clear. There is subtotal opacification of the left mastoid air cells, new from prior study. No acute calvarial abnormality. IMPRESSION: 1. No evidence of acute intracranial hemorrhage or mass. 2. Mild chronic small vessel ischemic changes and atrophy. 3. Subtotal opacification of the left mastoid air cells with possible involvement of the left middle ear, new from prior study. Consider acute otomastoiditis. Electronically signed by: Ayan Sanchez MD (05/12/2019 3:04 AM) [id number] DICTATED and SIGNED BY: AYAN SANCHEZ MD DATE: 05/12/19303 [] Course & Med Decision Making Course & Med Decision Making Pertinent Labs and Imaging studies reviewed. (See chart for details) [] 68-year-old male with underlying history of hypertension, diabetes, EtOH presents to the emergency department via EMS after they were called for "altered mental status." Patient is hard of hearing, he answers questions appropriately and examination. He states he got into a hot bath tonight and became weak and therefore called 911. Patient has no unilateral symptoms on examination, roommate states patient has been drinking all day, patient denies any alcohol use. He denies any headache, visual change, chest pain, shortness breath, nausea, vomiting on examination. Labs/Imaging reviewed CT head without acute bleeding They do mention possible otomastoiditis however patient without acute complaints of ear pain, fever, infectious symptoms Patient states he feels well and would like to dc home Labs with WBC 12.7, metabolic profile reviewed Milvia Disclaimer Milvia Disclaimer This electronic medical record was generated, in whole or in part, using a voice recognition dictation system. Departure Departure Impression: Primary Impression: Alcohol intoxication Additional Impression: Generalized weakness Disposition: 01 HOME, SELF-CARE Condition: IMPROVED Referrals: UNKNOWN PCP NAME (PCP) Patient Instructions: Weakness, [id number] Additional Instructions: Labs and imaging reviewed without acute findings CT head negative for acute findings Recommend follow up with PCP as needed in next 48 hours Tylenol/Motrin as needed for pain/fever Return to the ER with complaints of altered mental status, chest pain, fever Problem Qualifiers Primary Impression: Alcohol intoxication Complication of substance-induced condition: uncomplicated Qualified Codes: F10.920 - Alcohol use, unspecified with intoxication, uncomplicated MARIELLA GENAO MD May 12, 2019 02:09
[2019-05-12] MEDS ORDERED: ONDANSETRON PF 4 MG/2 ML VIAL. IVP ONE (02:30)
[2019-05-12 02:54] LABS: BASO % 0 % (0-3); EOS # 0.1 x10^3/uL (0.0-0.7); EOS % 1 % (0-3); HEMATOCRIT 41.9 % (39.0-53.0); LYMPH # 0.7 x10^3/uL (1.0-4.8); LYMPH % 5 % (24-48); MEAN CORPUSCULAR HEMOGLOBIN 31 pg (25-35); MEAN CORPUSCULAR HGB CONC 34 g/dL (31-37); MEAN CORPUSCULAR VOLUME 93 fL (79-100); MONO # 0.7 x10^3/uL (0.0-1.1); MONO % 5 % (0-9); NEUT # 11.2 x10^3/uL (1.8-7.7); NEUT % 88 % (31-73); PLATELET COUNT 231 x10^3/uL (140-400); RED CELL DISTRIBUTION WIDTH 16.4 % (11.5-14.5); WHITE BLOOD COUNT 12.7 x10^3/uL (4.0-11.0)
[2019-05-12 03:00] VITALS: BP 143/71
[2019-05-12 03:02] LABS: CALCIUM 9.8 mg/dL (8.5-10.1); CREATININE 1.1 mg/dL (0.7-1.3); GFR 66.4; POTASSIUM 3.5 mmol/L (3.5-5.1)
[2019-05-12 03:07] LABS: ALBUMIN 3.6 g/dL (3.4-5.0); ALBUMIN/GLOBULIN RATIO 1.2 (1.0-1.7); MAGNESIUM 1.9 mg/dL (1.8-2.4); TOTAL BILIRUBIN 0.3 mg/dL (0.2-1.0); TOTAL PROTEIN 6.5 g/dL (6.4-8.2)
--- NOTE | 2019-05-12 03:08 | RAD ---
CT head without contrast dated 05/12/2019. Comparison made 03/12/2019. CLINICAL INDICATION: Altered mental status. TECHNIQUE: Contiguous axial imaging the head performed from skull base to vertex. No contrast administered. One or more of the following individualized dose reduction techniques were utilized for this examination: 1. Automated exposure control 2. Adjustment of the mA and/or kV according to patient size 3. Use of iterative reconstruction technique. FINDINGS: Ventricles and sulci are mildly prominent for age. No midline shift or mass effect. Mild patchy low density in the deep/subcortical periventricular white matter. No hemorrhage or extra-axial collection. Posterior fossa and brainstem unremarkable. Visualized paranasal sinuses are clear. There is subtotal opacification of the left mastoid air cells, new from prior study. No acute calvarial abnormality. IMPRESSION: 1. No evidence of acute intracranial hemorrhage or mass. 2. Mild chronic small vessel ischemic changes and atrophy. 3. Subtotal opacification of the left mastoid air cells with possible involvement of the left middle ear, new from prior study. Consider acute otomastoiditis. Electronically signed by: Ayan Sanchez MD (05/12/2019 3:04 AM) [id number]
--- NOTE | 2019-05-12 03:37 | RAD ---
Single view chest dated 05/12/2019. Comparison made to 03/12/2019. CLINICAL INDICATION: Altered mental status. FINDINGS: Single upright view of the chest shows stable heart and mediastinal contours. Lungs are clear. No consolidation or pleural effusion. No pneumothorax. There is a chondroid lesion of the proximal right humerus, unchanged. IMPRESSION: 1. Acute abnormality of chest. Electronically signed by: Ayan Sanchez MD (05/12/2019 3:33 AM) [id number]
[2019-05-12 03:43] LABS: % EOS 2 % (0-5); % LYMPHS 5 % (24-48); % MONOS 5 % (0-10); % SEGS 88 % (35-66); PLT ESTIMATE ADEQUATE (ADEQUATE); TOXIC GRANULATION SLIGHT; TOXIC VACUOLATION SLIGHT
== END 2019-05-12 03:45 | disposition home or self-care (01) ==
LOC: ER 01:51
DX: R53.1 Weakness (principal); F10.229 Alcohol dependence with intoxication, unspecified; Y90.9 Presence of alcohol in blood, level not specified; R41.82 Altered mental status, unspecified; I10 Essential (primary) hypertension; E11.9 Type 2 diabetes mellitus without complications; Z88.5 Allergy status to narcotic agent
CPT/HCPCS: 36415; 70450; 71045; 80053; 83735; 85007; 85025; 96374; 99285; J2405